=== PATIENT | male | born 1935 | race Caucasian/White ===

== ENCOUNTER 2018-10-08 10:57 | Inpatient (IN) ==
[2018-10-08] MEDS ORDERED: VANCOMYCIN 1,000 MG VIAL ONE (11:04)
[2018-10-08] MEDS ORDERED: PAPAVERINE 60 MG/2 ML VIAL ONE (11:04)
[2018-10-08] MEDS ORDERED: SUFentanil 250 MCG/5 ML AMP ONE ×2 (11:08)
[2018-10-08] MEDS ORDERED: MIDAZOLAM 10 MG/2 ML VIAL ONE ×2 (11:09→12:57)
[2018-10-08] MEDS ORDERED: GLUCAGON 1 MG VIAL IM PRN (11:30)
[2018-10-08] MEDS ORDERED: CEFUROXIME INJ 1,500 MG in SYRINGE 1 EACH IV ONE (11:30)
[2018-10-08] MEDS ORDERED: DEXTROSE 50% 25 GM/50 ML SYRINGE IV PRN ×3 (11:30→17:00)
[2018-10-08] MEDS ORDERED: CEFUROXIME 1,500 MG VIAL ONE (11:31)
[2018-10-08] MEDS ORDERED: CALCIUM CHLORIDE 1,000 MG/10 ML SYRINGE IV ONE (13:32)
[2018-10-08] MEDS ORDERED: PHENYLEPHRINE DRIP 40 MG/250 ML PREMIX IV ONE (13:32)
[2018-10-08] MEDS ORDERED: SODIUM BICARBONATE 50 MEQ/50 ML VIAL IV ONE ×2 (13:32→16:06)
[2018-10-08] MEDS ORDERED: NITROPRUSSIDE 50 MG/2 ML VIAL ONE (13:32)
[2018-10-08] MEDS ORDERED: ALBUMIN 5% 12.5 GM/250 ML VIAL IV ONE (13:33)
[2018-10-08] MEDS ORDERED: POTASSIUM CHLORIDE RIDER 100 ML IV ONE ×2 (13:33→17:15)
[2018-10-08 13:36] LABS: ABG Base Excess 3.4 MMOL/L (-2.5-2.5); ABG HCO3 26.9 MMOL/L (20-26); ABG Oxygen Saturation 98.8 % (95-100); ABG PCO2 36.9 MM HG (35-48); ABG PH 7.481 (7.35-7.45); ABG PO2 240.6 MM HG (80-95); ABG TCO2 28.1 MMOL/L (23-27); Glucose Heart Surgery 98 MG/DL (74-106); Hemoglobin Heart Surgery 11.4 G/DL (14.0-18.0); Ionized Calcium Arterial 1.04 MMOL/L (1.21-1.46); Potassium Heart/CVR 2.7 MMOL/L (3.5-5.1); Sodium Heart/CVR 134 MMOL/L (135-145)
[2018-10-08 14:09] LABS: Apearance,Urine CLEAR (Clear); Bilirubin,Urine Negative (Negative); Blood, Urine Negative (Negative); Glucose,Urine (UA) Negative (Negative); Ketones,Urine Negative (Negative); Mucus,Urine Moderate /LPF (Occasional); Nitrite,Urine Negative (Negative); Protein,Urine Negative; RBC,Urine 10 /HPF (0-4); Urine Color Yellow (Yellow); Urine Urobilinogen < 2.0 EU/DL (0.2-1.0); WBC,Urine 1 /HPF (0-6)
[2018-10-08] MEDS ORDERED: AMIODARONE INJ 450 MG in DEXTROSE 5% 241 ML IV SCH (14:30)
[2018-10-08 14:53] LABS: Hematocrit Heart Surgery 24.8 PERCENT (42-52); Hemoglobin Heart Surgery 7.9 G/DL (14.0-18.0); PCO2 Patient Temp Venous 35.6 MM HG; PH Patient Temp Venous 7.49; PO2 Patient Temp Venous 42.7 MM HG; Potassium Heart/CVR 3.6 MMOL/L (3.5-5.1); VBG Base Excess 3.8 MEQ/L (0-4); VBG HCO3 27.6 MEQ/L (24-28); VBG Oxygen Saturation 83.9 %; VBG PCO2 37.3 MMHG (41-51); VBG PH 7.475; VBG PO2 45.8 MMHG (17-40)
[2018-10-08] MEDS ORDERED: CHLORHEXIDINE 4% SOLN 118 ML BOTTLE TOP SCH (15:00)
[2018-10-08] MEDS ORDERED: FAMOTIDINE 20 MG/2 ML VIAL IV ONE (15:18)
[2018-10-08] MEDS ORDERED: diphenhydrAMINE 50 MG/1 ML VIAL ONE ×2 (15:18→17:16)
[2018-10-08 15:28] LABS: Glucose Heart Surgery 213 MG/DL (74-106); Hemoglobin Heart Surgery 8.9 G/DL (14.0-18.0); Sodium Heart/CVR 129 MMOL/L (135-145); VBG Base Excess 3.6 MEQ/L (0-4); VBG HCO3 27.1 MEQ/L (24-28); VBG Oxygen Saturation 73.7 %; VBG PCO2 36.6 MMHG (41-51); VBG PH 7.487; VBG PO2 38.7 MMHG (17-40)
[2018-10-08 16:05] LABS: ABG Base Excess 3.3 MMOL/L (-2.5-2.5); ABG HCO3 26.3 MMOL/L (20-26); ABG Oxygen Saturation 98.5 % (95-100); ABG PCO2 33.5 MM HG (35-48); ABG PH 7.512 (7.35-7.45); ABG TCO2 27.3 MMOL/L (23-27); Glucose Heart Surgery 201 MG/DL (74-106); Hemoglobin Heart Surgery 9.7 G/DL (14.0-18.0); Ionized Calcium Arterial 1.09 MMOL/L (1.21-1.46); Potassium Heart/CVR 3.3 MMOL/L (3.5-5.1); Sodium Heart/CVR 133 MMOL/L (135-145)
[2018-10-08] MEDS ORDERED: MAGNESIUM SULFATE 5 GM/10 ML VIAL IV ONE (16:06)
[2018-10-08] MEDS ORDERED: HEPARIN 10,000 UNIT/10 ML VIAL ONE (16:06)
[2018-10-08] MEDS ORDERED: ALBUMIN 25% 25 GM/100 ML VIAL IV ONE (16:06)
[2018-10-08] MEDS ORDERED: DEXTROSE 5% KCL 20 MEQ 20 MEQ/1,000 ML BAG IV ONE (16:06)
[2018-10-08] MEDS ORDERED: MANNITOL 100 GM/500 ML BAG IV ONE (16:06)
[2018-10-08] MEDS ORDERED: FUROSEMIDE 20 MG/2 ML VIAL ONE (16:06)
[2018-10-08] MEDS ORDERED: PROTAMINE SULFATE 250 MG/25 ML VIAL IV ONE (16:06)
[2018-10-08] MEDS ORDERED: methylPREDNISolone SOD SUC 1,000 MG/8 ML VIAL ONE (16:06)
[2018-10-08] MEDS ORDERED: POTASSIUM CHLORIDE 20 MEQ/10 ML VIAL ONE (16:07)
[2018-10-08] MEDS ORDERED: PROTAMINE SULFATE 50 MG/5 ML VIAL IV ONE ×2 (16:07→17:17)
[2018-10-08] MEDS ORDERED: VECURONIUM 10 MG VIAL IV PRN ×2 (17:00)
[2018-10-08] MEDS ORDERED: ACETAMINOPHEN 650 MG SUPP RECTAL PRN (17:00)
[2018-10-08] MEDS ORDERED: MAGNESIUM SULF RIDER 4 GM in PREMIX 1 EACH IV PRN (17:00)
[2018-10-08] MEDS ORDERED: MIDAZOLAM 10 MG/2 ML VIAL IV PRN (17:00)
[2018-10-08] MEDS ORDERED: INSULIN REGULAR 100 UNIT/ML IV ONE (17:00)
[2018-10-08] MEDS ORDERED: CALCIUM CHLORIDE 1,000 MG/10 ML SYRINGE IV PRN (17:00)
[2018-10-08] MEDS ORDERED: ONDANSETRON 4 MG/2 ML VIAL IV PRN (17:00)
[2018-10-08] MEDS ORDERED: INSULIN REGULAR 100 UNIT/ML IV PRN (17:00)
[2018-10-08] MEDS ORDERED: MAGNESIUM SULF RIDER 2 GM in PREMIX 1 EACH IV PRN (17:00)
[2018-10-08] MEDS ORDERED: PHENYLEPHRINE DRIP 40 MG/250 ML PREMIX IV PRN (17:00)
[2018-10-08 17:05] LABS: ABG Base Excess 4.8 MMOL/L (-2.5-2.5); ABG HCO3 27.7 MMOL/L (20-26); ABG Oxygen Saturation 98.3 % (95-100); ABG PH 7.517 (7.35-7.45); ABG PO2 145.1 MM HG (80-95); ABG TCO2 28.8 MMOL/L (23-27); Glucose Heart Surgery 172 MG/DL (74-106); Hemoglobin Heart Surgery 10.8 G/DL (14.0-18.0); Potassium Heart/CVR 3.3 MMOL/L (3.5-5.1)
[2018-10-08 17:08] LABS: Basophils % 0.3 % (0.0-0.8); Eosinophils # 0.1 10*3/uL (0.0-0.87); Eosinophils % 0.7 % (0.00-10.9); Hematocrit 26.2 VOL% (42.0-52.0); Hemoglobin 8.6 GM/DL (14.0-18.0); Immature Granulocytes % 0.8 %; Immature Granulocytes Absolute 0.06 #; Lymphocytes # 0.5 10*3/uL (1.4-4.0); Lymphocytes % 6.9 % (21.2-54.2); Mean Corpuscular HGB Conc 32.8 GM/DL (32-36); Mean Corpuscular Volume 98.9 FL (87-102); Mean Platelet Volume 9.2 FL (9.6-12.0); Monocytes % 8.1 % (1.7-12.7); Neutrophils % 83.2 % (38.7-73.9); Red Blood Count 2.65 MC/CUMM (3.8-5.5); Red Cell Distribution Width 13.1 % (9.3-17.3); White Blood Count 7.6 T/CUMM (4-12)
[2018-10-08 17:12] LABS: Platelet Count 141 T/CUMM (130-400)
[2018-10-08] MEDS ORDERED: CALCIUM CHLORIDE 1,000 MG/10 ML VIAL IV ONE (17:14)
[2018-10-08] MEDS ORDERED: PHENYLEPHRINE DRIP 20 MG/250 ML PREMIX IV ONE (17:14)
[2018-10-08] MEDS ORDERED: SEVOFLURANE 1 UNIT/15 MINUTE INH ONE (17:15)
[2018-10-08] MEDS ORDERED: ePHEDrine 50 MG/ML AMP ONE (17:16)
[2018-10-08] MEDS ORDERED: AMIODARONE 150 MG/3 ML VIAL ONE (17:16)
[2018-10-08] MEDS ORDERED: AMINOCAPROIC ACID 5,000 MG/20 ML VIAL ONE (17:17)
[2018-10-08] MEDS ORDERED: NITROGLYCERIN DRIP 50 MG/250 ML BOTTLE IV ONE (17:17)
[2018-10-08] MEDS ORDERED: VECURONIUM 10 MG VIAL IV ONE (17:17)
[2018-10-08] MEDS ORDERED: SODIUM CHLORIDE 0.9% 1,000 ML IV ONE (17:18)
[2018-10-08] MEDS ORDERED: LACTATED RINGERS 1,000 ML IV ONE (17:18)
[2018-10-08] MEDS ORDERED: SODIUM CHLORIDE 0.9% 250 ML IV ONE (17:18)
[2018-10-08] MEDS ORDERED: ETOMIDATE 40 MG/20 ML VIAL IV ONE (17:25)
[2018-10-08 17:27] LABS: Albumin 3.2 G/DL (3.4-5.0); Bilirubin,Total 1.3 MG/DL (0.2-1.0); Calcium 9.3 MG/DL (8.5-10.1); INR 1.1; Osmolality,Calculated 279.7 MOS/KG (273-304); PT Patient Result 11.5 SECS; Partial Thromboplastin Time 26.9 SECS (0-40); Total Protein 5.5 G/DL (6.4-8.3)
[2018-10-08 17:28] LABS: CKMB % 3.5 %
[2018-10-08 17:29] LABS: Troponin I 21.8 NG/ML (0.00-0.045)
[2018-10-08] MEDS: SODIUM CHLORIDE 0.45% 1,000 ML IV SCH ×2 (17:54)
[2018-10-08] MEDS: NITROPRUSSIDE 100 MG in DEXTROSE 5% 250 ML IV PRN (17:54)
[2018-10-08] MEDS: POTASSIUM CHLORIDE RIDER 20 MEQ in PREMIX 1 EACH IV PRN ×4 (17:56→20:49)
[2018-10-08] MEDS: INSULIN REGULAR DRIP 100 ML IV SCH (18:39)
[2018-10-08] MEDS: LACTATED RINGERS 250 ML IV PRN ×5 (18:45→21:20)
[2018-10-08 20:05] LABS: ABG Base Excess 2.8 MMOL/L (-2.5-2.5); ABG HCO3 26.5 MMOL/L (20-26); ABG Oxygen Saturation 95.2 % (95-100); ABG PCO2 37.6 MM HG (35-48); ABG PH 7.466 (7.35-7.45); ABG PO2 80.1 MM HG (80-95); ABG TCO2 27.7 MMOL/L (23-27); Glucose Heart Surgery 165 MG/DL (74-106); Hemoglobin Heart Surgery 11.1 G/DL (14.0-18.0); Potassium Heart/CVR 3.2 MMOL/L (3.5-5.1)
[2018-10-08] MEDS: AMIODARONE INJ 450 MG in DEXTROSE 5% 241 ML IV SCH (20:19)
[2018-10-08] MEDS: CHLORHEXIDINE 0.12% ORAL RINSE 60 ML BOTTLE SWISH/SPIT SCH (20:28)
[2018-10-08] MEDS ORDERED: CHLORHEXIDINE 0.12% ORAL RINSE 60 ML BOTTLE SWISH/SPIT SCH (21:00)
[2018-10-08] MEDS: MIDAZOLAM 2 MG/2 ML VIAL IV PRN (23:39)
[2018-10-09] MEDS ORDERED: FUROSEMIDE 40 MG/4 ML VIAL IV ONE ×3 (00:07→18:11)
[2018-10-09] MEDS: ALBUMIN 5% 12.5 GM in PREMIX 1 EACH IV PRN ×5 (00:49→20:20)
[2018-10-09] MEDS: LACTATED RINGERS 250 ML IV PRN ×3 (01:17→01:59)
[2018-10-09] MEDS: AMIODARONE INJ 450 MG in DEXTROSE 5% 241 ML IV SCH ×2 (01:24→16:30)
[2018-10-09] MEDS: CEFUROXIME INJ 1,500 MG in SYRINGE 1 EACH IV SCH ×2 (02:11→15:15)
[2018-10-09 03:00] LABS: ABG Base Excess 3.5 MMOL/L (-2.5-2.5); ABG HCO3 27.6 MMOL/L (20-26); ABG PCO2 36.4 MM HG (35-48); ABG PH 7.479 (7.35-7.45); ABG PO2 96.8 MM HG (80-95); ABG TCO2 24.6 MMOL/L (23-27); Glucose Heart Surgery 122 MG/DL (74-106); Hematocrit Heart Surgery 30.4 PERCENT (42-52); Hemoglobin Heart Surgery 9.8 G/DL (14.0-18.0); Potassium Heart/CVR 3.2 MMOL/L (3.5-5.1)
[2018-10-09] MEDS: POTASSIUM CHLORIDE RIDER 20 MEQ in PREMIX 1 EACH IV PRN ×5 (03:07→12:30)
[2018-10-09 03:08] LABS: Basophils % 0.1 % (0.0-0.8); Hematocrit 30.5 VOL% (42.0-52.0); Hemoglobin 9.9 GM/DL (14.0-18.0); Immature Granulocytes % 0.6 %; Immature Granulocytes Absolute 0.04 #; Lymphocytes # 0.3 10*3/uL (1.4-4.0); Mean Corpuscular HGB Conc 32.5 GM/DL (32-36); Mean Corpuscular Volume 99.3 FL (87-102); Mean Platelet Volume 9.7 FL (9.6-12.0); Monocytes % 7.2 % (1.7-12.7); Neutrophils % 87.1 % (38.7-73.9); Platelet Count 124 T/CUMM (130-400); Red Blood Count 3.07 MC/CUMM (3.8-5.5); Red Cell Distribution Width 13.2 % (9.3-17.3); White Blood Count 6.8 T/CUMM (4-12)
[2018-10-09 03:23] LABS: Albumin 3.2 G/DL (3.4-5.0); Bilirubin,Direct 0.38 MG/DL (0.0-0.20); Calcium 8.4 MG/DL (8.5-10.1); Osmolality,Calculated 279.4 MOS/KG (273-304); Total Protein 5.7 G/DL (6.4-8.3)
[2018-10-09 03:24] LABS: CKMB % 3.6 %; Troponin I 13.9 NG/ML (0.00-0.045)
[2018-10-09] MEDS: MIDAZOLAM 2 MG/2 ML VIAL IV PRN ×3 (03:32→07:00)
[2018-10-09 06:20] LABS: VBG Base Excess 0.7 MEQ/L (0-4); VBG HCO3 23.4 MEQ/L (24-28); VBG Oxygen Saturation 98.6 %; VBG PCO2 30.8 MMHG (41-51); VBG PH 7.498; VBG PO2 180.2 MMHG (17-40)
[2018-10-09 06:46] LABS: VBG Base Excess 1.6 MEQ/L (0-4); VBG HCO3 25.7 MEQ/L (24-28); VBG Oxygen Saturation 85.6 %; VBG PCO2 41.3 MMHG (41-51); VBG PH 7.412; VBG PO2 50.6 MMHG (17-40)
[2018-10-09] MEDS ORDERED: PROPOFOL 1,000 MG/100 ML BOTTLE IV ONE (07:22)
[2018-10-09] MEDS: PROPOFOL 1,000 MG/100 ML BOTTLE IV SCH ×4 (07:25→22:57)
[2018-10-09] MEDS: CHLORHEXIDINE 0.12% ORAL RINSE 60 ML BOTTLE SWISH/SPIT SCH ×2 (09:05→20:03)
[2018-10-09 09:52] LABS: VBG HCO3 24.3 MEQ/L (24-28); VBG PCO2 39.5 MMHG (41-51); VBG PH 7.417; VBG PO2 22.2 MMHG (17-40)
[2018-10-09] MEDS ORDERED: HEPARIN/NACL 0.9% 2 UNITS/ML 500 ML IV ONE (10:29)
[2018-10-09 10:34] LABS: VBG Base Excess 0.6 MEQ/L (0-4); VBG HCO3 24.8 MEQ/L (24-28); VBG Oxygen Saturation 32.7 %; VBG PCO2 38.1 MMHG (41-51); VBG PH 7.432; VBG PO2 24.1 MMHG (17-40)
[2018-10-09] MEDS ORDERED: DOBUTamine 500 MG/250 ML PREMIX IV ONE (10:34)
[2018-10-09] MEDS: DOBUTamine 500 MG/250 ML PREMIX IV SCH (10:40)
[2018-10-09] MEDS ORDERED: NITROGLYCERIN DRIP 50 MG/250 ML BOTTLE IV ONE (10:45)
[2018-10-09] MEDS: NITROGLYCERIN DRIP 50 MG/250 ML BOTTLE IV PRN (10:50)
[2018-10-09 11:44] LABS: ABG Base Excess 0.4 MMOL/L (-2.5-2.5); ABG HCO3 24.1 MMOL/L (20-26); ABG Oxygen Saturation 95.2 % (95-100); ABG PCO2 35.2 MM HG (35-48); ABG PH 7.453 (7.35-7.45); ABG PO2 81.6 MM HG (80-95); ABG TCO2 25.2 MMOL/L (23-27); Glucose Heart Surgery 123 MG/DL (74-106); Hemoglobin Heart Surgery 10.3 G/DL (14.0-18.0); Potassium Heart/CVR 3.7 MMOL/L (3.5-5.1)
[2018-10-09] MEDS: MORPHINE 4 MG/1 ML VIAL IV PRN ×2 (12:20→16:26)
[2018-10-09] MEDS: INSULIN REGULAR DRIP 100 ML IV SCH (16:30)
[2018-10-09] MEDS: SODIUM CHLORIDE 0.45% 1,000 ML IV SCH ×2 (19:00)
[2018-10-09 19:35] LABS: CKMB % 4.3 %
[2018-10-09 19:37] LABS: Troponin I 9.67 NG/ML (0.00-0.045)
[2018-10-09] MEDS: MORPHINE 10 MG/1 ML VIAL IV PRN (21:05)
[2018-10-10] MEDS: CEFUROXIME INJ 1,500 MG in SYRINGE 1 EACH IV SCH (03:05)
[2018-10-10] MEDS: FUROSEMIDE 40 MG/4 ML VIAL IV PRN (03:05)
[2018-10-10] MEDS: AMIODARONE INJ 450 MG in DEXTROSE 5% 241 ML IV SCH ×3 (03:25→21:06)
[2018-10-10 03:34] LABS: ABG Base Excess 3.3 MMOL/L (-2.5-2.5); ABG HCO3 26.3 MMOL/L (20-26); ABG Oxygen Saturation 97.7 % (95-100); ABG PCO2 33.6 MM HG (35-48); ABG PH 7.512 (7.35-7.45); ABG PO2 115.6 MM HG (80-95); ABG TCO2 27.4 MMOL/L (23-27); Glucose Heart Surgery 120 MG/DL (74-106); Hemoglobin Heart Surgery 8.7 G/DL (14.0-18.0); Potassium Heart/CVR 3.4 MMOL/L (3.5-5.1)
[2018-10-10 03:40] LABS: Basophils % 0.1 % (0.0-0.8); Hematocrit 24.3 VOL% (42.0-52.0); Hemoglobin 7.8 GM/DL (14.0-18.0); Immature Granulocytes % 0.9 %; Lymphocytes # 0.6 10*3/uL (1.4-4.0); Lymphocytes % 4.9 % (21.2-54.2); Mean Corpuscular HGB Conc 32.1 GM/DL (32-36); Mean Platelet Volume 9.8 FL (9.6-12.0); Monocytes % 7.6 % (1.7-12.7); Neutrophils % 86.5 % (38.7-73.9); Platelet Count 122 T/CUMM (130-400); Red Blood Count 2.43 MC/CUMM (3.8-5.5); Red Cell Distribution Width 13.2 % (9.3-17.3); White Blood Count 11.2 T/CUMM (4-12)
[2018-10-10] MEDS: PROPOFOL 1,000 MG/100 ML BOTTLE IV SCH ×2 (04:07→10:32)
[2018-10-10 04:14] LABS: Albumin 3.1 G/DL (3.4-5.0); Bilirubin,Direct 0.28 MG/DL (0.0-0.20); Bilirubin,Total 0.6 MG/DL (0.2-1.0); Calcium 7.5 MG/DL (8.5-10.1); Osmolality,Calculated 282.3 MOS/KG (273-304); Total Protein 5.3 G/DL (6.4-8.3)
[2018-10-10 04:16] LABS: Lymphocytes 6 % (20-55); Platelet Estimate Decreased; Segmented Neutrophils 93 % (50-85); Total Cells Counted 100
[2018-10-10 04:17] LABS: Polychromasia Few
[2018-10-10] MEDS: POTASSIUM CHLORIDE RIDER 20 MEQ in PREMIX 1 EACH IV PRN ×4 (04:19→14:22)
[2018-10-10 05:37] LABS: ABG Base Excess 2.4 MMOL/L (-2.5-2.5); ABG HCO3 26.6 MMOL/L (20-26); ABG PCO2 40.1 MM HG (35-48); ABG PH 7.433 (7.35-7.45); ABG TCO2 24.5 MMOL/L (23-27); Glucose Heart Surgery 125 MG/DL (74-106); Hematocrit Heart Surgery 29.6 PERCENT (42-52); Hemoglobin Heart Surgery 9.6 G/DL (14.0-18.0); Potassium Heart/CVR 4.5 MMOL/L (3.5-5.1)
[2018-10-10] MEDS: DEXMEDETOMIDINE 200 MCG in SODIUM CHLORIDE 0.9% 48 ML IV PRN ×2 (06:25→10:58)
[2018-10-10] MEDS ORDERED: FUROSEMIDE 40 MG/4 ML VIAL IV ONE (06:30)
[2018-10-10] MEDS: NITROGLYCERIN DRIP 50 MG/250 ML BOTTLE IV PRN (08:15)
[2018-10-10] MEDS: CHLORHEXIDINE 0.12% ORAL RINSE 60 ML BOTTLE SWISH/SPIT SCH ×2 (09:17→21:06)
[2018-10-10] MEDS: MORPHINE 4 MG/1 ML VIAL IV PRN ×3 (09:53→21:40)
[2018-10-10 09:55] LABS: ABG Base Excess 4.2 MMOL/L (-2.5-2.5); ABG HCO3 28.1 MMOL/L (20-26); ABG Oxygen Saturation 97.4 % (95-100); ABG PCO2 32.5 MM HG (35-48); ABG PH 7.522 (7.35-7.45); ABG PO2 86.6 MM HG (80-95); ABG TCO2 23.9 MMOL/L (23-27); Glucose Heart Surgery 126 MG/DL (74-106); Hemoglobin Heart Surgery 10.7 G/DL (14.0-18.0); Potassium Heart/CVR 3.8 MMOL/L (3.5-5.1)
[2018-10-10] MEDS: POTASSIUM CHLORIDE RIDER 10 MEQ in PREMIX 1 EACH IV PRN (10:40)
[2018-10-10 11:37] LABS: VBG Base Excess 5.3 MEQ/L (0-4); VBG HCO3 28.4 MEQ/L (24-28); VBG Oxygen Saturation 51.1 %; VBG PCO2 40.1 MMHG (41-51); VBG PH 7.473
[2018-10-10 12:19] LABS: ABG Base Excess 4.3 MMOL/L (-2.5-2.5); ABG HCO3 28.3 MMOL/L (20-26); ABG Oxygen Saturation 98.8 % (95-100); ABG PCO2 32.5 MM HG (35-48); ABG PH 7.524 (7.35-7.45); Glucose Heart Surgery 114 MG/DL (74-106); Hematocrit Heart Surgery 33.5 PERCENT (42-52); Hemoglobin Heart Surgery 10.8 G/DL (14.0-18.0); Potassium Heart/CVR 4.2 MMOL/L (3.5-5.1)
[2018-10-10] MEDS: POLYVINYL ALCOHOL 1.4% OPH SOLN 15 ML BOTTLE BOTH EYES PRN ×2 (12:50→23:00)
[2018-10-10 13:50] LABS: ABG Base Excess 3.2 MMOL/L (-2.5-2.5); ABG HCO3 27.3 MMOL/L (20-26); ABG Oxygen Saturation 98.2 % (95-100); ABG PCO2 37.2 MM HG (35-48); ABG PH 7.467 (7.35-7.45); ABG TCO2 24.1 MMOL/L (23-27); Glucose Heart Surgery 109 MG/DL (74-106); Hematocrit Heart Surgery 32.8 PERCENT (42-52); Hemoglobin Heart Surgery 10.6 G/DL (14.0-18.0); Potassium Heart/CVR 4.3 MMOL/L (3.5-5.1)
[2018-10-10] MEDS: INSULIN REGULAR 100 UNIT/ML SUBCUT SCH ×2 (16:00→21:06)
[2018-10-10] MEDS: SODIUM CHLORIDE 0.45% 1,000 ML IV SCH ×2 (17:00)
[2018-10-10] MEDS ORDERED: methylPREDNISolone SOD SUC 125 MG/2 ML VIAL IV ONE (19:21)
[2018-10-10] MEDS: DOBUTamine 500 MG/250 ML PREMIX IV SCH (21:06)
[2018-10-11] MEDS: INSULIN REGULAR 100 UNIT/ML SUBCUT SCH ×6 (00:01→20:23)
[2018-10-11] MEDS: AMIODARONE INJ 450 MG in DEXTROSE 5% 241 ML IV SCH ×2 (00:58→11:07)
[2018-10-11 01:46] LABS: ABG Base Excess -3.3 MMOL/L (-2.5-2.5); ABG HCO3 21.6 MMOL/L (20-26); ABG Oxygen Saturation 94.9 % (95-100); ABG PCO2 49.7 MM HG (35-48); ABG PH 7.288 (7.35-7.45); ABG PO2 88.7 MM HG (80-95); ABG TCO2 21.4 MMOL/L (23-27); Glucose Heart Surgery 176 MG/DL (74-106); Potassium Heart/CVR 4.4 MMOL/L (3.5-5.1)
[2018-10-11] MEDS ORDERED: CLORAZEPATE 7.5 MG TABLET PO ONE (01:52)
[2018-10-11] MEDS ORDERED: ALBUTEROL 2.5 MG/3 ML NEB RESP TX PRN (01:52)
[2018-10-11] MEDS: MORPHINE 10 MG/1 ML VIAL IV PRN ×2 (02:10→21:36)
[2018-10-11] MEDS: FUROSEMIDE 40 MG/4 ML VIAL IV PRN (02:11)
[2018-10-11] MEDS: ACETAMINOPHEN 325 MG TABLET PO PRN ×2 (02:37→21:36)
[2018-10-11 03:48] LABS: ABG Base Excess 2.2 MMOL/L (-2.5-2.5); ABG HCO3 26.3 MMOL/L (20-26); ABG Oxygen Saturation 97.4 % (95-100); ABG PCO2 37.2 MM HG (35-48); ABG PH 7.453 (7.35-7.45); ABG TCO2 23.3 MMOL/L (23-27)
[2018-10-11 04:05] LABS: Basophils % 0.2 % (0.0-0.8); Hematocrit 32.6 VOL% (42.0-52.0); Hemoglobin 10.4 GM/DL (14.0-18.0); Immature Granulocytes % 0.8 %; Immature Granulocytes Absolute 0.08 #; Lymphocytes # 0.6 10*3/uL (1.4-4.0); Lymphocytes % 6.1 % (21.2-54.2); Mean Corpuscular HGB Conc 31.9 GM/DL (32-36); Mean Corpuscular Volume 97.3 FL (87-102); Monocytes % 12.2 % (1.7-12.7); NRBC # 0.02 10*3/uL; Neutrophils % 80.7 % (38.7-73.9); Platelet Count 137 T/CUMM (130-400); Red Blood Count 3.35 MC/CUMM (3.8-5.5); Red Cell Distribution Width 15.1 % (9.3-17.3); White Blood Count 9.8 T/CUMM (4-12)
[2018-10-11 04:39] LABS: Albumin 3.2 G/DL (3.4-5.0); Bilirubin,Direct 0.36 MG/DL (0.0-0.20); Bilirubin,Total 0.9 MG/DL (0.2-1.0); Calcium 7.9 MG/DL (8.5-10.1); Osmolality,Calculated 279.7 MOS/KG (273-304); Total Protein 5.8 G/DL (6.4-8.3)
[2018-10-11] MEDS: POTASSIUM CHLORIDE RIDER 20 MEQ in PREMIX 1 EACH IV PRN ×3 (06:00→19:00)
[2018-10-11] MEDS: POTASSIUM CHLORIDE RIDER 10 MEQ in PREMIX 1 EACH IV PRN (07:14)
[2018-10-11] MEDS ORDERED: FUROSEMIDE 40 MG/4 ML VIAL IV ONE ×2 (08:44→15:58)
[2018-10-11] MEDS ORDERED: FUROSEMIDE 100 MG/10 ML VIAL ONE (08:47)
[2018-10-11] MEDS: ALBUTEROL/IPRATROPIUM 3 ML NEB RESP TX SCH ×5 (09:08→22:55)
[2018-10-11] MEDS: CITALOPRAM 20 MG TABLET PO SCH (10:19)
[2018-10-11] MEDS: APIXABAN 5 MG TABLET PO SCH ×2 (10:19→20:19)
[2018-10-11] MEDS: PANTOPRAZOLE 40 MG TABLET PO SCH (10:19)
[2018-10-11] MEDS: ASPIRIN EC 81 MG TABLET PO SCH (10:19)
[2018-10-11] MEDS: CHLORHEXIDINE 0.12% ORAL RINSE 60 ML BOTTLE SWISH/SPIT SCH ×2 (10:20→20:23)
[2018-10-11] MEDS: CLORAZEPATE 3.75 MG TABLET PO SCH ×3 (11:08→20:19)
[2018-10-11] MEDS ORDERED: GABAPENTIN 100 MG CAPSULE PO ONE (11:09)
[2018-10-11] MEDS: DOBUTamine 500 MG/250 ML PREMIX IV SCH (12:22)
[2018-10-11] MEDS ORDERED: GABAPENTIN 100 MG CAPSULE PO SCH (15:00)
[2018-10-11] MEDS ORDERED: DOBUTamine 500 MG/250 ML PREMIX IV SCH (16:30)
[2018-10-11 16:46] LABS: ABG HCO3 27.1 MMOL/L (20-26); ABG Oxygen Saturation 97.5 % (95-100); ABG PH 7.483 (7.35-7.45); ABG PO2 90.3 MM HG (80-95); Glucose Heart Surgery 155 MG/DL (74-106); Hemoglobin Heart Surgery 12.3 G/DL (14.0-18.0); Potassium Heart/CVR 3.4 MMOL/L (3.5-5.1)
[2018-10-11] MEDS: GABAPENTIN 100 MG CAPSULE PO SCH ×2 (16:49→20:19)
[2018-10-11] MEDS: METOPROLOL SUCCINATE XL 25 MG TABLET PO SCH (16:51)
[2018-10-11] MEDS: MORPHINE 4 MG/1 ML VIAL IV PRN (19:10)
[2018-10-11] MEDS: SODIUM CHLORIDE 0.45% 1,000 ML IV SCH (20:23)
[2018-10-11] MEDS: NITROPRUSSIDE 100 MG in DEXTROSE 5% 250 ML IV PRN (20:48)
[2018-10-11] MEDS: METOCLOPRAMIDE 10 MG/2 ML VIAL IV PRN (22:47)
[2018-10-12] MEDS: INSULIN REGULAR 100 UNIT/ML SUBCUT SCH ×5 (00:07→23:30)
[2018-10-12] MEDS: NITROGLYCERIN DRIP 50 MG/250 ML BOTTLE IV PRN (01:40)
[2018-10-12] MEDS: ALBUTEROL/IPRATROPIUM 3 ML NEB RESP TX SCH ×6 (03:30→23:05)
[2018-10-12 05:07] LABS: ABG Base Excess 1.4 MMOL/L (-2.5-2.5); ABG HCO3 25.6 MMOL/L (20-26); ABG Oxygen Saturation 94.9 % (95-100); ABG PCO2 40.6 MM HG (35-48); ABG PH 7.415 (7.35-7.45); ABG PO2 74.8 MM HG (80-95)
[2018-10-12 05:55] LABS: Basophils % 0.2 % (0.0-0.8); Hemoglobin 11.5 GM/DL (14.0-18.0); Immature Granulocytes % 0.9 %; Immature Granulocytes Absolute 0.11 #; Lymphocytes # 0.7 10*3/uL (1.4-4.0); Lymphocytes % 5.4 % (21.2-54.2); Mean Corpuscular HGB Conc 32.9 GM/DL (32-36); Mean Corpuscular Volume 96.7 FL (87-102); Mean Platelet Volume 9.9 FL (9.6-12.0); Monocytes % 10.1 % (1.7-12.7); Neutrophils % 83.4 % (38.7-73.9); Platelet Count 164 T/CUMM (130-400); Red Blood Count 3.62 MC/CUMM (3.8-5.5); Red Cell Distribution Width 14.4 % (9.3-17.3); White Blood Count 12.5 T/CUMM (4-12)
[2018-10-12 06:20] LABS: Albumin 3.4 G/DL (3.4-5.0); Bilirubin,Total 1.6 MG/DL (0.2-1.0); Calcium 8.3 MG/DL (8.5-10.1); Total Protein 6.3 G/DL (6.4-8.3)
[2018-10-12 06:23] LABS: Troponin I 5.69 NG/ML (0.00-0.045)
[2018-10-12] MEDS: METOCLOPRAMIDE 10 MG/2 ML VIAL IV PRN (06:27)
[2018-10-12] MEDS ORDERED: LISINOPRIL/HCTZ 20-25 MG TABLET PO SCH (09:00)
[2018-10-12] MEDS: CLORAZEPATE 3.75 MG TABLET PO SCH ×2 (10:00→19:57)
[2018-10-12] MEDS: PANTOPRAZOLE 40 MG TABLET PO SCH (10:00)
[2018-10-12] MEDS: CITALOPRAM 20 MG TABLET PO SCH (10:00)
[2018-10-12] MEDS: GABAPENTIN 100 MG CAPSULE PO SCH ×3 (10:00→20:15)
[2018-10-12] MEDS: APIXABAN 5 MG TABLET PO SCH ×2 (10:00→20:15)
[2018-10-12] MEDS: CHLORHEXIDINE 0.12% ORAL RINSE 60 ML BOTTLE SWISH/SPIT SCH ×2 (10:00→20:15)
[2018-10-12] MEDS: ASPIRIN EC 81 MG TABLET PO SCH (10:00)
[2018-10-12] MEDS: ALUMINUM/MAGNES/SIMETH MAX STR 30 ML UDCUP PO SCH ×4 (10:00→20:14)
[2018-10-12] MEDS: CEFEPIME 1,000 MG in SYRINGE 1 EACH IV SCH ×2 (10:00→20:14)
[2018-10-12] MEDS: METOPROLOL SUCCINATE XL 25 MG TABLET PO SCH (10:00)
[2018-10-12] MEDS ORDERED: PROPOFOL 1,000 MG/100 ML BOTTLE IV ONE (11:28)
[2018-10-12] MEDS ORDERED: VECURONIUM 10 MG VIAL IV ONE ×2 (11:28→11:58)
[2018-10-12] MEDS: MIDAZOLAM 2 MG/2 ML VIAL IV PRN ×2 (12:00→19:24)
[2018-10-12] MEDS: PROPOFOL 1,000 MG/100 ML BOTTLE IV SCH ×3 (12:30→22:45)
[2018-10-12 13:10] LABS: ABG Base Excess 3.1 MMOL/L (-2.5-2.5); ABG HCO3 27.2 MMOL/L (20-26); ABG Oxygen Saturation 96.7 % (95-100); ABG PCO2 39.1 MM HG (35-48); ABG PO2 83.4 MM HG (80-95); ABG TCO2 24.4 MMOL/L (23-27)
[2018-10-12] MEDS ORDERED: MIDAZOLAM 10 MG/2 ML VIAL ONE (14:44)
[2018-10-12] MEDS ORDERED: FUROSEMIDE 40 MG/4 ML VIAL IV ONE (15:40)
[2018-10-12] MEDS ORDERED: ALBUMIN 5% 25 GM in PREMIX 1 EACH IV ONE (15:53)
[2018-10-12] MEDS: SODIUM CHLORIDE 0.45% 1,000 ML IV SCH (18:12)
[2018-10-12] MEDS: ACETAMINOPHEN 325 MG TABLET PO PRN (23:46)
[2018-10-13] MEDS ORDERED: FUROSEMIDE 40 MG/4 ML VIAL IV ONE (00:01)
[2018-10-13] MEDS: ALUMINUM/MAGNES/SIMETH MAX STR 30 ML UDCUP PO SCH ×2 (01:00→05:10)
[2018-10-13] MEDS ORDERED: HEPARIN/NACL 0.9% 2 UNITS/ML 500 ML IV ONE (02:11)
[2018-10-13 02:28] LABS: Basophils % 0.1 % (0.0-0.8); Eosinophils % 0.4 % (0.00-10.9); Hemoglobin 10.7 GM/DL (14.0-18.0); Immature Granulocytes % 0.6 %; Immature Granulocytes Absolute 0.05 #; Lymphocytes # 0.6 10*3/uL (1.4-4.0); Lymphocytes % 7.4 % (21.2-54.2); Mean Corpuscular HGB Conc 32.4 GM/DL (32-36); Mean Corpuscular Volume 95.9 FL (87-102); Mean Platelet Volume 9.4 FL (9.6-12.0); Monocytes % 12.4 % (1.7-12.7); Neutrophils % 79.1 % (38.7-73.9); Platelet Count 163 T/CUMM (130-400); Red Blood Count 3.44 MC/CUMM (3.8-5.5); Red Cell Distribution Width 14.4 % (9.3-17.3); White Blood Count 8.2 T/CUMM (4-12)
[2018-10-13 02:34] LABS: ABG Base Excess 5.4 MMOL/L (-2.5-2.5); ABG HCO3 29.3 MMOL/L (20-26); ABG Oxygen Saturation 98.2 % (95-100); ABG PCO2 34.1 MM HG (35-48); ABG PH 7.524 (7.35-7.45); ABG PO2 98.2 MM HG (80-95); ABG TCO2 24.9 MMOL/L (23-27)
[2018-10-13 02:55] LABS: Albumin 3.3 G/DL (3.4-5.0); Bilirubin,Total 1.1 MG/DL (0.2-1.0); Calcium 8.3 MG/DL (8.5-10.1); Osmolality,Calculated 281.8 MOS/KG (273-304)
[2018-10-13] MEDS: ALBUTEROL/IPRATROPIUM 3 ML NEB RESP TX SCH ×6 (02:55→23:26)
[2018-10-13 03:05] LABS: Troponin I 4.53 NG/ML (0.00-0.045)
[2018-10-13] MEDS: MORPHINE 4 MG/1 ML VIAL IV PRN ×2 (03:40→19:30)
[2018-10-13] MEDS: INSULIN REGULAR 100 UNIT/ML SUBCUT SCH ×5 (04:05→23:49)
[2018-10-13] MEDS: PROPOFOL 1,000 MG/100 ML BOTTLE IV SCH ×5 (04:23→23:35)
[2018-10-13] MEDS: POTASSIUM CHLORIDE RIDER 20 MEQ in PREMIX 1 EACH IV PRN ×2 (05:05→06:04)
[2018-10-13] MEDS: CHLORHEXIDINE 0.12% ORAL RINSE 60 ML BOTTLE SWISH/SPIT SCH ×2 (08:45→20:27)
[2018-10-13] MEDS: CEFEPIME 1,000 MG in SYRINGE 1 EACH IV SCH ×2 (10:30→20:22)
[2018-10-13] MEDS: METOCLOPRAMIDE 10 MG/2 ML VIAL IV SCH ×3 (12:30→23:40)
[2018-10-13] MEDS: ASPIRIN EC 81 MG TABLET PO SCH (13:24)
[2018-10-13] MEDS: APIXABAN 5 MG TABLET PO SCH ×2 (13:24→20:26)
[2018-10-13] MEDS: CITALOPRAM 20 MG TABLET PO SCH (13:24)
[2018-10-13] MEDS: GABAPENTIN 100 MG CAPSULE PO SCH ×3 (13:24→20:27)
[2018-10-13] MEDS: PANTOPRAZOLE 40 MG TABLET PO SCH (13:25)
[2018-10-13] MEDS: PANTOPRAZOLE 40 MG VIAL IV SCH (16:27)
[2018-10-13] MEDS: SODIUM CHLORIDE 0.45% 1,000 ML IV SCH (23:50)
[2018-10-14] MEDS: ALBUTEROL/IPRATROPIUM 3 ML NEB RESP TX SCH ×6 (03:04→23:45)
[2018-10-14] MEDS: MORPHINE 4 MG/1 ML VIAL IV PRN ×3 (03:48→19:55)
[2018-10-14] MEDS: INSULIN REGULAR 100 UNIT/ML SUBCUT SCH ×5 (03:55→20:15)
[2018-10-14 03:56] LABS: ABG Base Excess 4.7 MMOL/L (-2.5-2.5); ABG HCO3 28.6 MMOL/L (20-26); ABG Oxygen Saturation 98.4 % (95-100); ABG PCO2 41.9 MM HG (35-48); ABG TCO2 25.6 MMOL/L (23-27)
[2018-10-14 04:07] LABS: Basophils % 0.2 % (0.0-0.8); Eosinophils # 0.3 10*3/uL (0.0-0.87); Eosinophils % 3.2 % (0.00-10.9); Hematocrit 35.5 VOL% (42.0-52.0); Hemoglobin 11.7 GM/DL (14.0-18.0); Immature Granulocytes % 1.5 %; Immature Granulocytes Absolute 0.13 #; Lymphocytes % 11.1 % (21.2-54.2); Mean Corpuscular Volume 96.2 FL (87-102); Mean Platelet Volume 9.6 FL (9.6-12.0); Monocytes % 12.6 % (1.7-12.7); Neutrophils % 71.4 % (38.7-73.9); Platelet Count 175 T/CUMM (130-400); Red Blood Count 3.69 MC/CUMM (3.8-5.5); Red Cell Distribution Width 14.2 % (9.3-17.3); White Blood Count 8.7 T/CUMM (4-12)
[2018-10-14 04:12] LABS: Calcium 8.2 MG/DL (8.5-10.1); Osmolality,Calculated 277.8 MOS/KG (273-304)
[2018-10-14] MEDS: PROPOFOL 1,000 MG/100 ML BOTTLE IV SCH ×5 (04:12→20:49)
[2018-10-14] MEDS: POTASSIUM CHLORIDE RIDER 20 MEQ in PREMIX 1 EACH IV PRN ×2 (04:20→05:17)
[2018-10-14] MEDS: METOCLOPRAMIDE 10 MG/2 ML VIAL IV SCH ×3 (05:51→17:17)
[2018-10-14] MEDS: CITALOPRAM 20 MG TABLET PO SCH (09:16)
[2018-10-14] MEDS: GABAPENTIN 100 MG CAPSULE PO SCH ×3 (09:16→20:15)
[2018-10-14] MEDS: APIXABAN 5 MG TABLET PO SCH ×2 (09:17→20:15)
[2018-10-14] MEDS: ASPIRIN EC 81 MG TABLET PO SCH (09:17)
[2018-10-14] MEDS: PANTOPRAZOLE 40 MG VIAL IV SCH (09:18)
[2018-10-14] MEDS: CEFEPIME 1,000 MG in SYRINGE 1 EACH IV SCH ×2 (09:18→20:14)
[2018-10-14] MEDS: CHLORHEXIDINE 0.12% ORAL RINSE 60 ML BOTTLE SWISH/SPIT SCH ×2 (09:32→20:15)
[2018-10-14] MEDS: FUROSEMIDE 40 MG/4 ML VIAL IV SCH (17:17)
[2018-10-14] MEDS: SODIUM CHLORIDE 0.45% 1,000 ML IV SCH (19:37)
[2018-10-15] MEDS: INSULIN REGULAR 100 UNIT/ML SUBCUT SCH ×6 (00:12→20:12)
[2018-10-15] MEDS: PROPOFOL 1,000 MG/100 ML BOTTLE IV SCH ×5 (00:47→21:45)
[2018-10-15] MEDS: SODIUM CHLORIDE 0.45% 1,000 ML IV SCH ×2 (00:50→18:24)
[2018-10-15] MEDS: ALBUTEROL/IPRATROPIUM 3 ML NEB RESP TX SCH ×6 (04:01→23:14)
[2018-10-15 04:08] LABS: ABG Base Excess 3.4 MMOL/L (-2.5-2.5); ABG HCO3 27.1 MMOL/L (20-26); ABG Oxygen Saturation 96.9 % (95-100); ABG PCO2 37.9 MM HG (35-48); ABG PH 7.472 (7.35-7.45); ABG PO2 92.5 MM HG (80-95); ABG TCO2 28.3 MMOL/L (23-27); Basophils % 0.4 % (0.0-0.8); Eosinophils # 0.2 10*3/uL (0.0-0.87); Eosinophils % 2.6 % (0.00-10.9); Hematocrit 36.7 VOL% (42.0-52.0); Hemoglobin 11.5 GM/DL (14.0-18.0); Immature Granulocytes % 2.1 %; Immature Granulocytes Absolute 0.19 #; Lymphocytes # 0.8 10*3/uL (1.4-4.0); Mean Corpuscular HGB Conc 31.3 GM/DL (32-36); Mean Corpuscular Volume 96.8 FL (87-102); Mean Platelet Volume 9.2 FL (9.6-12.0); Monocytes % 10.7 % (1.7-12.7); Neutrophils % 75.2 % (38.7-73.9); Platelet Count 184 T/CUMM (130-400); Red Blood Count 3.79 MC/CUMM (3.8-5.5); Red Cell Distribution Width 14.2 % (9.3-17.3); White Blood Count 9.2 T/CUMM (4-12)
[2018-10-15 04:26] LABS: Albumin 2.9 G/DL (3.4-5.0); Bilirubin,Total 0.7 MG/DL (0.2-1.0); Osmolality,Calculated 276.8 MOS/KG (273-304); Total Protein 5.7 G/DL (6.4-8.3)
[2018-10-15] MEDS: POTASSIUM CHLORIDE RIDER 20 MEQ in PREMIX 1 EACH IV PRN ×2 (04:36→05:36)
[2018-10-15] MEDS: METOCLOPRAMIDE 10 MG/2 ML VIAL IV SCH ×4 (05:29→18:18)
[2018-10-15] MEDS: FUROSEMIDE 40 MG/4 ML VIAL IV SCH ×2 (07:46→15:44)
[2018-10-15] MEDS: GABAPENTIN 100 MG CAPSULE PO SCH ×3 (08:58→20:11)
[2018-10-15] MEDS: CITALOPRAM 20 MG TABLET PO SCH (08:58)
[2018-10-15] MEDS: PANTOPRAZOLE 40 MG VIAL IV SCH (08:58)
[2018-10-15] MEDS: APIXABAN 5 MG TABLET PO SCH ×2 (08:58→20:11)
[2018-10-15] MEDS: CHLORHEXIDINE 0.12% ORAL RINSE 60 ML BOTTLE SWISH/SPIT SCH ×2 (08:59→20:12)
[2018-10-15] MEDS: ASPIRIN EC 81 MG TABLET PO SCH (08:59)
[2018-10-15] MEDS: CEFEPIME 1,000 MG in SYRINGE 1 EACH IV SCH ×2 (08:59→20:11)
[2018-10-15] MEDS: MORPHINE 4 MG/1 ML VIAL IV PRN (14:09)
[2018-10-15] MEDS: ACETAMINOPHEN 325 MG TABLET PO PRN (22:26)
[2018-10-16] MEDS: METOCLOPRAMIDE 10 MG/2 ML VIAL IV SCH ×3 (00:30→12:30)
[2018-10-16] MEDS: INSULIN REGULAR 100 UNIT/ML SUBCUT SCH ×6 (00:53→20:25)
[2018-10-16] MEDS: MORPHINE 4 MG/1 ML VIAL IV PRN ×2 (03:10→20:19)
[2018-10-16 03:48] LABS: ABG Base Excess 4.7 MMOL/L (-2.5-2.5); ABG HCO3 28.6 MMOL/L (20-26); ABG Oxygen Saturation 96.9 % (95-100); ABG PCO2 38.7 MM HG (35-48); ABG PH 7.475 (7.35-7.45); ABG PO2 87.1 MM HG (80-95); ABG TCO2 24.9 MMOL/L (23-27)
[2018-10-16 03:55] LABS: Basophils % 0.4 % (0.0-0.8); Eosinophils # 0.2 10*3/uL (0.0-0.87); Eosinophils % 2.1 % (0.00-10.9); Hematocrit 36.7 VOL% (42.0-52.0); Hemoglobin 11.9 GM/DL (14.0-18.0); Immature Granulocytes % 1.9 %; Lymphocytes # 0.6 10*3/uL (1.4-4.0); Lymphocytes % 5.8 % (21.2-54.2); Mean Corpuscular HGB Conc 32.4 GM/DL (32-36); Mean Corpuscular Volume 96.3 FL (87-102); Mean Platelet Volume 9.4 FL (9.6-12.0); Monocytes % 10.4 % (1.7-12.7); Neutrophils % 79.4 % (38.7-73.9); Platelet Count 203 T/CUMM (130-400); Red Blood Count 3.81 MC/CUMM (3.8-5.5); White Blood Count 10.3 T/CUMM (4-12)
[2018-10-16] MEDS: PROPOFOL 1,000 MG/100 ML BOTTLE IV SCH ×2 (04:00→08:52)
[2018-10-16] MEDS: ALBUTEROL/IPRATROPIUM 3 ML NEB RESP TX SCH ×6 (04:15→23:57)
[2018-10-16 04:18] LABS: Albumin 2.6 G/DL (3.4-5.0); Bilirubin,Total 1.2 MG/DL (0.2-1.0); Calcium 8.4 MG/DL (8.5-10.1); Osmolality,Calculated 276.7 MOS/KG (273-304); Total Protein 5.9 G/DL (6.4-8.3)
[2018-10-16] MEDS: POTASSIUM CHLORIDE RIDER 20 MEQ in PREMIX 1 EACH IV PRN ×6 (04:27→21:13)
[2018-10-16] MEDS ORDERED: ASPIRIN CHEW 81 MG TABLET PO ONE (08:01)
[2018-10-16] MEDS: APIXABAN 5 MG TABLET PO SCH ×2 (08:20→20:19)
[2018-10-16] MEDS: CEFEPIME 1,000 MG in SYRINGE 1 EACH IV SCH ×2 (08:20→20:18)
[2018-10-16] MEDS: GABAPENTIN 100 MG CAPSULE PO SCH ×3 (08:20→20:19)
[2018-10-16] MEDS: CITALOPRAM 20 MG TABLET PO SCH (08:20)
[2018-10-16] MEDS: PANTOPRAZOLE 40 MG VIAL IV SCH (08:20)
[2018-10-16] MEDS: ASPIRIN CHEW 81 MG TABLET PO SCH (08:23)
[2018-10-16] MEDS: FUROSEMIDE 40 MG/4 ML VIAL IV SCH ×2 (08:23→16:03)
[2018-10-16] MEDS: CHLORHEXIDINE 0.12% ORAL RINSE 60 ML BOTTLE SWISH/SPIT SCH ×2 (08:23→20:26)
[2018-10-16] MEDS ORDERED: NITROPRUSSIDE 50 MG/2 ML VIAL ONE (08:53)
[2018-10-16] MEDS: NITROPRUSSIDE 100 MG in DEXTROSE 5% 250 ML IV PRN (09:04)
[2018-10-16 09:40] LABS: ABG Base Excess 3.9 MMOL/L (-2.5-2.5); ABG HCO3 27.8 MMOL/L (20-26); ABG Oxygen Saturation 96.6 % (95-100); ABG PCO2 42.6 MM HG (35-48); ABG PH 7.435 (7.35-7.45); ABG PO2 88.6 MM HG (80-95); ABG TCO2 24.9 MMOL/L (23-27)
[2018-10-16] MEDS: POLYVINYL ALCOHOL 1.4% OPH SOLN 15 ML BOTTLE BOTH EYES PRN (10:22)
[2018-10-16] MEDS: SODIUM CHLORIDE 0.45% 1,000 ML IV SCH (17:50)
[2018-10-16] MEDS ORDERED: METOCLOPRAMIDE 10 MG/2 ML VIAL IV SCH (21:00)
[2018-10-17] MEDS: INSULIN REGULAR 100 UNIT/ML SUBCUT SCH ×4 (00:07→12:03)
[2018-10-17] MEDS: POTASSIUM CHLORIDE RIDER 20 MEQ in PREMIX 1 EACH IV PRN ×4 (00:11→12:34)
[2018-10-17] MEDS: POTASSIUM CHLORIDE RIDER 10 MEQ in PREMIX 1 EACH IV PRN ×2 (00:42→06:44)
[2018-10-17] MEDS: ALBUTEROL/IPRATROPIUM 3 ML NEB RESP TX SCH ×6 (03:11→23:01)
[2018-10-17 04:52] LABS: Basophils % 0.4 % (0.0-0.8); Eosinophils # 0.2 10*3/uL (0.0-0.87); Eosinophils % 1.8 % (0.00-10.9); Hematocrit 36.3 VOL% (42.0-52.0); Hemoglobin 11.7 GM/DL (14.0-18.0); Immature Granulocytes % 1.3 %; Immature Granulocytes Absolute 0.14 #; Lymphocytes # 1.1 10*3/uL (1.4-4.0); Lymphocytes % 10.3 % (21.2-54.2); Mean Corpuscular HGB Conc 32.2 GM/DL (32-36); Mean Corpuscular Volume 96.5 FL (87-102); Mean Platelet Volume 9.7 FL (9.6-12.0); Monocytes % 10.8 % (1.7-12.7); Neutrophils % 75.4 % (38.7-73.9); Platelet Count 168 T/CUMM (130-400); Red Blood Count 3.76 MC/CUMM (3.8-5.5); Red Cell Distribution Width 13.8 % (9.3-17.3); White Blood Count 10.5 T/CUMM (4-12)
[2018-10-17 05:22] LABS: Calcium 8.7 MG/DL (8.5-10.1); Osmolality,Calculated 276.7 MOS/KG (273-304)
[2018-10-17] MEDS: CHLORHEXIDINE 0.12% ORAL RINSE 60 ML BOTTLE SWISH/SPIT SCH ×2 (08:54→22:13)
[2018-10-17] MEDS: FUROSEMIDE 40 MG/4 ML VIAL IV SCH (08:55)
[2018-10-17] MEDS: PANTOPRAZOLE 40 MG VIAL IV SCH (08:56)
[2018-10-17] MEDS: ASPIRIN CHEW 81 MG TABLET PO SCH (08:57)
[2018-10-17] MEDS: CITALOPRAM 20 MG TABLET PO SCH (08:58)
[2018-10-17] MEDS: APIXABAN 5 MG TABLET PO SCH ×2 (08:58→22:09)
[2018-10-17] MEDS: CEFEPIME 1,000 MG in SYRINGE 1 EACH IV SCH (09:02)
[2018-10-17] MEDS: GABAPENTIN 100 MG CAPSULE PO SCH ×3 (09:06→22:08)
[2018-10-17] MEDS ORDERED: MAGNESIUM SULF RIDER 2 GM in PREMIX 1 EACH IV PRN (13:50)
[2018-10-17] MEDS ORDERED: MAGNESIUM HYDROXIDE SUSP 30 ML UDCUP PO PRN (13:50)
[2018-10-17] MEDS ORDERED: oxyCODONE/ACETAMINOPHEN 5-325 MG TABLET PO PRN (13:50)
[2018-10-17] MEDS ORDERED: DEXTROSE 50% 25 GM/50 ML VIAL IV PRN (13:50)
[2018-10-17] MEDS ORDERED: KETOROLAC 30 MG/1 ML VIAL IV PRN (13:50)
[2018-10-17] MEDS ORDERED: MAGNESIUM SULF RIDER 4 GM in PREMIX 1 EACH IV PRN (13:50)
[2018-10-17] MEDS ORDERED: DEXTROSE 50% 25 GM/50 ML SYRINGE IV PRN (13:50)
[2018-10-17] MEDS ORDERED: ALUMINUM/MAGNES/SIMETH MAX STR 30 ML UDCUP PO PRN (13:50)
[2018-10-17] MEDS ORDERED: ONDANSETRON 4 MG/2 ML VIAL IV PRN (13:50)
[2018-10-17] MEDS ORDERED: SODIUM CHLOR 0.45% KCL 20 MEQ 20 MEQ/1,000 ML BAG IV SCH (13:50)
[2018-10-17] MEDS ORDERED: ACETAMINOPHEN 325 MG TABLET PO PRN (13:50)
[2018-10-17] MEDS ORDERED: GLUCAGON 1 MG VIAL IM PRN ×2 (13:50)
[2018-10-17] MEDS ORDERED: GABAPENTIN 100 MG CAPSULE PO SCH (15:00)
[2018-10-17] MEDS: metFORMIN 850 MG TABLET PO SCH (16:59)
[2018-10-17] MEDS ORDERED: APIXABAN 5 MG TABLET PO SCH (21:00)
[2018-10-17] MEDS: DOXAZOSIN 4 MG TABLET PO SCH (22:06)
[2018-10-17] MEDS: FINASTERIDE 5 MG TABLET PO SCH (22:07)
[2018-10-18] MEDS: ALBUTEROL/IPRATROPIUM 3 ML NEB RESP TX SCH ×2 (01:58→07:39)
[2018-10-18 05:37] LABS: Basophils # 0.1 10*3/uL (0.0-0.2); Basophils % 0.6 % (0.0-0.8); Eosinophils # 0.2 10*3/uL (0.0-0.87); Eosinophils % 2.4 % (0.00-10.9); Hematocrit 35.2 VOL% (42.0-52.0); Hemoglobin 11.3 GM/DL (14.0-18.0); Immature Granulocytes % 1.4 %; Immature Granulocytes Absolute 0.13 #; Lymphocytes # 0.9 10*3/uL (1.4-4.0); Mean Corpuscular HGB Conc 32.1 GM/DL (32-36); Mean Corpuscular Volume 97.5 FL (87-102); Mean Platelet Volume 9.1 FL (9.6-12.0); Neutrophils % 77.6 % (38.7-73.9); Platelet Count 133 T/CUMM (130-400); Red Blood Count 3.61 MC/CUMM (3.8-5.5); Red Cell Distribution Width 13.8 % (9.3-17.3); White Blood Count 9.4 T/CUMM (4-12)
[2018-10-18] MEDS ORDERED: FUROSEMIDE 40 MG/4 ML VIAL IV ONE (06:00)
[2018-10-18 06:11] LABS: Alanine Aminotransferase 65 U/L (16-61); Albumin 3.1 G/DL (3.4-5.0); Alkaline Phosphatase 67 U/L (45-117); Aspartate Amino Transferase 43 U/L (0-37); Bilirubin,Indirect 0.6 MG/DL (0.0-1.0); Blood Urea Nitrogen 24 MG/DL (7-18); Glucose 121 MG/DL (74-106); Total Protein 6.2 G/DL (6.4-8.3)
[2018-10-18] MEDS: POTASSIUM CHLORIDE 20 MEQ TABLET PO PRN (06:50)
[2018-10-18] MEDS ORDERED: DILTIAZEM 50 MG/10 ML VIAL IV ONE (08:01)
[2018-10-18] MEDS: LEVALBUTEROL 1.25 MG/3 ML NEB RESP TX SCH ×5 (08:06→22:35)
[2018-10-18] MEDS ORDERED: dilTIAZem Drip 125 MG/125 ML PREMIX IV SCH (08:30)
[2018-10-18] MEDS: CITALOPRAM 20 MG TABLET PO SCH (08:52)
[2018-10-18] MEDS: APIXABAN 5 MG TABLET PO SCH ×2 (08:52→20:55)
[2018-10-18] MEDS: GABAPENTIN 100 MG CAPSULE PO SCH ×3 (08:52→20:55)
[2018-10-18] MEDS: metFORMIN 850 MG TABLET PO SCH ×2 (08:52→17:20)
[2018-10-18] MEDS: METOPROLOL SUCCINATE XL 25 MG TABLET PO SCH (08:52)
[2018-10-18] MEDS: ROSUVASTATIN 10 MG TABLET PO SCH (08:52)
[2018-10-18] MEDS: MULTIVITAMIN (BEROCCA) TABLET PO SCH (08:52)
[2018-10-18] MEDS: ASPIRIN CHEW 81 MG TABLET PO SCH (08:52)
[2018-10-18] MEDS: PANTOPRAZOLE 40 MG TABLET PO SCH (08:52)
[2018-10-18] MEDS: FERROUS SULFATE 325 MG TABLET PO SCH (08:53)
[2018-10-18] MEDS: DOCUSATE SODIUM 100 MG CAPSULE PO SCH (08:53)
[2018-10-18] MEDS: CHLORHEXIDINE 0.12% ORAL RINSE 60 ML BOTTLE SWISH/SPIT SCH ×2 (08:55→20:54)
[2018-10-18] MEDS ORDERED: NON-FORMULARY MEDICATION (Citalopram Hydrobromide [Celexa] 20 MG) PO SCH (09:00)
[2018-10-18] MEDS ORDERED: ASPIRIN EC 81 MG TABLET PO SCH (09:00)
[2018-10-18] MEDS ORDERED: ALBUTEROL 2.5 MG/3 ML NEB RESP TX SCH (11:00)
[2018-10-18] MEDS ORDERED: AMIODARONE INJ 50 MG in DEXTROSE 5% 100 ML IV ONE (11:55)
[2018-10-18] MEDS: LOPERAMIDE 2 MG CAPSULE PO PRN (12:30)
[2018-10-18] MEDS ORDERED: SODIUM CHLORIDE 0.9% 500 ML IV ONE (12:30)
[2018-10-18] MEDS: AMIODARONE INJ 450 MG in DEXTROSE 5% 241 ML IV SCH (12:45)
[2018-10-18] MEDS: SODIUM CHLORIDE 0.9% 1,000 ML IV SCH (13:00)
[2018-10-18] MEDS: FINASTERIDE 5 MG TABLET PO SCH (20:55)
[2018-10-18] MEDS: DOXAZOSIN 4 MG TABLET PO SCH (20:55)
[2018-10-19] MEDS: SODIUM CHLORIDE 0.9% 1,000 ML IV SCH ×2 (02:14→15:39)
[2018-10-19] MEDS: LEVALBUTEROL 1.25 MG/3 ML NEB RESP TX SCH ×6 (02:31→19:05)
[2018-10-19] MEDS: AMIODARONE INJ 450 MG in DEXTROSE 5% 241 ML IV SCH (03:13)
[2018-10-19 05:03] LABS: Basophils % 0.4 % (0.0-0.8); Eosinophils # 0.2 10*3/uL (0.0-0.87); Eosinophils % 1.5 % (0.00-10.9); Hematocrit 32.9 VOL% (42.0-52.0); Hemoglobin 10.5 GM/DL (14.0-18.0); Immature Granulocytes % 1.1 %; Immature Granulocytes Absolute 0.11 #; Lymphocytes # 0.6 10*3/uL (1.4-4.0); Mean Corpuscular HGB Conc 31.9 GM/DL (32-36); Mean Corpuscular Volume 97.3 FL (87-102); Mean Platelet Volume 9.1 FL (9.6-12.0); Monocytes % 8.9 % (1.7-12.7); Neutrophils % 82.1 % (38.7-73.9); Platelet Count 123 T/CUMM (130-400); Red Blood Count 3.38 MC/CUMM (3.8-5.5); Red Cell Distribution Width 13.5 % (9.3-17.3); White Blood Count 9.7 T/CUMM (4-12)
[2018-10-19 05:52] LABS: Alanine Aminotransferase 58 U/L (16-61); Albumin 3.1 G/DL (3.4-5.0); Alkaline Phosphatase 66 U/L (45-117); Aspartate Amino Transferase 40 U/L (0-37); Bilirubin,Indirect 0.6 MG/DL (0.0-1.0); Blood Urea Nitrogen 23 MG/DL (7-18); Calcium 8.5 MG/DL (8.5-10.1); Glucose 126 MG/DL (74-106); Total Protein 5.9 G/DL (6.4-8.3)
[2018-10-19 06:00] LABS: Troponin I 0.807 NG/ML (0.00-0.045)
[2018-10-19] MEDS: APIXABAN 5 MG TABLET PO SCH ×2 (09:05→22:05)
[2018-10-19] MEDS: metFORMIN 850 MG TABLET PO SCH ×2 (09:05→16:47)
[2018-10-19] MEDS: MULTIVITAMIN (BEROCCA) TABLET PO SCH (09:05)
[2018-10-19] MEDS: ASPIRIN CHEW 81 MG TABLET PO SCH (09:05)
[2018-10-19] MEDS: GABAPENTIN 100 MG CAPSULE PO SCH ×3 (09:06→22:05)
[2018-10-19] MEDS: ROSUVASTATIN 10 MG TABLET PO SCH (09:06)
[2018-10-19] MEDS: DOCUSATE SODIUM 100 MG CAPSULE PO SCH (09:06)
[2018-10-19] MEDS: FERROUS SULFATE 325 MG TABLET PO SCH (09:06)
[2018-10-19] MEDS: CHLORHEXIDINE 0.12% ORAL RINSE 60 ML BOTTLE SWISH/SPIT SCH ×2 (09:07→22:11)
[2018-10-19] MEDS: PANTOPRAZOLE 40 MG TABLET PO SCH (09:09)
[2018-10-19] MEDS: AMIODARONE 200 MG TABLET PO SCH (09:09)
[2018-10-19] MEDS: METOPROLOL SUCCINATE XL 25 MG TABLET PO SCH (09:10)
[2018-10-19] MEDS: FINASTERIDE 5 MG TABLET PO SCH (22:05)
[2018-10-19] MEDS: DOXAZOSIN 4 MG TABLET PO SCH (22:05)
[2018-10-20] MEDS: LEVALBUTEROL 1.25 MG/3 ML NEB RESP TX SCH ×6 (03:10→22:59)
[2018-10-20] MEDS ORDERED: FUROSEMIDE 40 MG/4 ML VIAL IV ONE (08:31)
[2018-10-20] MEDS: SODIUM CHLORIDE 0.9% 1,000 ML IV SCH (08:45)
[2018-10-20] MEDS: CLORAZEPATE 3.75 MG TABLET PO PRN ×2 (08:49→21:58)
[2018-10-20] MEDS: LOPERAMIDE 2 MG CAPSULE PO PRN ×3 (08:49→21:59)
[2018-10-20] MEDS: FERROUS SULFATE 325 MG TABLET PO SCH (08:49)
[2018-10-20] MEDS: METOPROLOL SUCCINATE XL 50 MG TABLET PO SCH (08:49)
[2018-10-20] MEDS: GABAPENTIN 100 MG CAPSULE PO SCH ×3 (08:49→20:57)
[2018-10-20] MEDS: ROSUVASTATIN 10 MG TABLET PO SCH (08:49)
[2018-10-20] MEDS: ASPIRIN CHEW 81 MG TABLET PO SCH (08:50)
[2018-10-20] MEDS: APIXABAN 5 MG TABLET PO SCH ×2 (08:50→20:57)
[2018-10-20] MEDS: POTASSIUM CHLORIDE 20 MEQ TABLET PO PRN ×2 (08:50→10:42)
[2018-10-20] MEDS: DOCUSATE SODIUM 100 MG CAPSULE PO SCH (08:51)
[2018-10-20] MEDS: CHLORHEXIDINE 0.12% ORAL RINSE 60 ML BOTTLE SWISH/SPIT SCH ×2 (08:51→20:57)
[2018-10-20] MEDS: PANTOPRAZOLE 40 MG TABLET PO SCH (08:56)
[2018-10-20] MEDS: AMIODARONE 200 MG TABLET PO SCH (08:56)
[2018-10-20] MEDS: MULTIVITAMIN (BEROCCA) TABLET PO SCH (08:56)
[2018-10-20] MEDS: metFORMIN 850 MG TABLET PO SCH ×2 (08:56→16:32)
[2018-10-20] MEDS ORDERED: ZINC OXIDE PASTE 113 GM TUBE TOP PRN (11:42)
[2018-10-20] MEDS ORDERED: methylPREDNISolone SOD SUC 125 MG/2 ML VIAL IV ONE (11:49)
[2018-10-20] MEDS: FINASTERIDE 5 MG TABLET PO SCH (20:56)
[2018-10-20] MEDS: DOXAZOSIN 4 MG TABLET PO SCH (20:57)
[2018-10-20] MEDS: ZALEPLON 5 MG CAPSULE PO PRN (21:58)
[2018-10-21] MEDS: LEVALBUTEROL 1.25 MG/3 ML NEB RESP TX SCH ×6 (02:40→23:06)
[2018-10-21 04:44] LABS: Basophils % 0.1 % (0.0-0.8); Hematocrit 30.8 VOL% (42.0-52.0); Immature Granulocytes % 0.6 %; Immature Granulocytes Absolute 0.06 #; Lymphocytes # 0.4 10*3/uL (1.4-4.0); Lymphocytes % 4.5 % (21.2-54.2); Mean Corpuscular HGB Conc 32.5 GM/DL (32-36); Mean Corpuscular Volume 96.9 FL (87-102); Mean Platelet Volume 10.3 FL (9.6-12.0); Monocytes % 4.7 % (1.7-12.7); Neutrophils % 90.1 % (38.7-73.9); Platelet Count 122 T/CUMM (130-400); Red Blood Count 3.18 MC/CUMM (3.8-5.5); Red Cell Distribution Width 13.6 % (9.3-17.3); White Blood Count 9.5 T/CUMM (4-12)
[2018-10-21 04:46] LABS: Alanine Aminotransferase 45 U/L (16-61); Alkaline Phosphatase 65 U/L (45-117); Aspartate Amino Transferase 31 U/L (0-37); Bilirubin,Indirect 0.3 MG/DL (0.0-1.0); Blood Urea Nitrogen 16 MG/DL (7-18); Glucose 132 MG/DL (74-106); Osmolality,Calculated 272.1 MOS/KG (273-304); Total Protein 5.8 G/DL (6.4-8.3)
[2018-10-21 04:48] LABS: Troponin I 0.327 NG/ML (0.00-0.045)
[2018-10-21 05:19] LABS: Anisocytosis 1+; Band Neutrophils 3 % (0-10); Lymphocytes 5 % (20-55); Macrocytosis 1+; Ovalocytes Few; Platelet Estimate Decreased; Polychromasia 1+; Segmented Neutrophils 89 % (50-85); Total Cells Counted 100
[2018-10-21] MEDS: metFORMIN 850 MG TABLET PO SCH ×2 (07:15→16:48)
[2018-10-21] MEDS: POTASSIUM CHLORIDE 20 MEQ TABLET PO PRN ×3 (07:15→14:57)
[2018-10-21] MEDS: ASPIRIN CHEW 81 MG TABLET PO SCH (09:25)
[2018-10-21] MEDS: MULTIVITAMIN (BEROCCA) TABLET PO SCH (09:25)
[2018-10-21] MEDS: ROSUVASTATIN 10 MG TABLET PO SCH (09:25)
[2018-10-21] MEDS: APIXABAN 5 MG TABLET PO SCH ×2 (09:26→21:15)
[2018-10-21] MEDS: GABAPENTIN 100 MG CAPSULE PO SCH ×3 (09:26→21:14)
[2018-10-21] MEDS: METOPROLOL SUCCINATE XL 50 MG TABLET PO SCH (09:27)
[2018-10-21] MEDS: PANTOPRAZOLE 40 MG TABLET PO SCH (09:27)
[2018-10-21] MEDS: FERROUS SULFATE 325 MG TABLET PO SCH (09:27)
[2018-10-21] MEDS: DOCUSATE SODIUM 100 MG CAPSULE PO SCH (09:28)
[2018-10-21] MEDS: CHLORHEXIDINE 0.12% ORAL RINSE 60 ML BOTTLE SWISH/SPIT SCH ×2 (09:28→21:20)
[2018-10-21] MEDS: POLYVINYL ALCOHOL 1.4% OPH SOLN 15 ML BOTTLE BOTH EYES PRN (09:30)
[2018-10-21] MEDS: FINASTERIDE 5 MG TABLET PO SCH (21:15)
[2018-10-21] MEDS: DOXAZOSIN 4 MG TABLET PO SCH (21:17)
[2018-10-21] MEDS: CLORAZEPATE 3.75 MG TABLET PO PRN (21:17)
[2018-10-21] MEDS: ZALEPLON 5 MG CAPSULE PO PRN (21:17)
[2018-10-22] MEDS: LEVALBUTEROL 1.25 MG/3 ML NEB RESP TX SCH ×6 (02:52→23:30)
[2018-10-22 06:20] LABS: Basophils % 0.5 % (0.0-0.8); Eosinophils # 0.2 10*3/uL (0.0-0.87); Eosinophils % 2.8 % (0.00-10.9); Immature Granulocytes % 0.7 %; Immature Granulocytes Absolute 0.06 #; Lymphocytes # 0.9 10*3/uL (1.4-4.0); Lymphocytes % 10.3 % (21.2-54.2); Mean Corpuscular HGB Conc 32.3 GM/DL (32-36); Mean Corpuscular Volume 96.6 FL (87-102); Mean Platelet Volume 9.5 FL (9.6-12.0); Monocytes % 9.5 % (1.7-12.7); Neutrophils % 76.2 % (38.7-73.9); Platelet Count 133 T/CUMM (130-400); Red Blood Count 3.21 MC/CUMM (3.8-5.5); Red Cell Distribution Width 13.9 % (9.3-17.3); White Blood Count 8.2 T/CUMM (4-12)
[2018-10-22 06:45] LABS: Alanine Aminotransferase 40 U/L (16-61); Alkaline Phosphatase 60 U/L (45-117); Aspartate Amino Transferase 27 U/L (0-37); Bilirubin,Indirect 0.4 MG/DL (0.0-1.0); Blood Urea Nitrogen 15 MG/DL (7-18); Calcium 8.5 MG/DL (8.5-10.1); Glucose 103 MG/DL (74-106); Osmolality,Calculated 275.7 MOS/KG (273-304); Total Protein 5.3 G/DL (6.4-8.3)
[2018-10-22 06:48] LABS: Troponin I 0.295 NG/ML (0.00-0.045)
[2018-10-22] MEDS: ROSUVASTATIN 10 MG TABLET PO SCH (08:00)
[2018-10-22] MEDS: METOPROLOL SUCCINATE XL 50 MG TABLET PO SCH (08:00)
[2018-10-22] MEDS: MULTIVITAMIN (BEROCCA) TABLET PO SCH (08:00)
[2018-10-22] MEDS: metFORMIN 850 MG TABLET PO SCH ×2 (08:00→16:17)
[2018-10-22] MEDS: APIXABAN 5 MG TABLET PO SCH ×2 (08:00→22:17)
[2018-10-22] MEDS: FERROUS SULFATE 325 MG TABLET PO SCH (08:00)
[2018-10-22] MEDS: GABAPENTIN 100 MG CAPSULE PO SCH ×3 (08:00→22:17)
[2018-10-22] MEDS: PANTOPRAZOLE 40 MG TABLET PO SCH (08:00)
[2018-10-22] MEDS: ASPIRIN CHEW 81 MG TABLET PO SCH (08:01)
[2018-10-22] MEDS: POTASSIUM CHLORIDE 20 MEQ TABLET PO PRN ×3 (08:01→13:25)
[2018-10-22] MEDS: CHLORHEXIDINE 0.12% ORAL RINSE 60 ML BOTTLE SWISH/SPIT SCH ×2 (08:01→22:18)
[2018-10-22] MEDS: DOCUSATE SODIUM 100 MG CAPSULE PO SCH (08:07)
[2018-10-22] MEDS: DOXAZOSIN 4 MG TABLET PO SCH (22:17)
[2018-10-22] MEDS: ZALEPLON 5 MG CAPSULE PO PRN (22:18)
[2018-10-22] MEDS: CLORAZEPATE 3.75 MG TABLET PO PRN (22:18)
[2018-10-22] MEDS: LOPERAMIDE 2 MG CAPSULE PO PRN (22:18)
[2018-10-22] MEDS: FINASTERIDE 5 MG TABLET PO SCH (22:18)
[2018-10-23] MEDS: LEVALBUTEROL 1.25 MG/3 ML NEB RESP TX SCH ×6 (03:19→23:22)
[2018-10-23] MEDS: METOPROLOL SUCCINATE XL 50 MG TABLET PO SCH ×2 (08:52→21:02)
[2018-10-23] MEDS: ROSUVASTATIN 10 MG TABLET PO SCH (08:52)
[2018-10-23] MEDS: APIXABAN 5 MG TABLET PO SCH ×2 (08:52→21:01)
[2018-10-23] MEDS: PANTOPRAZOLE 40 MG TABLET PO SCH (08:52)
[2018-10-23] MEDS: MULTIVITAMIN (BEROCCA) TABLET PO SCH (08:52)
[2018-10-23] MEDS: metFORMIN 850 MG TABLET PO SCH ×2 (08:52→17:30)
[2018-10-23] MEDS: DOCUSATE SODIUM 100 MG CAPSULE PO SCH (08:53)
[2018-10-23] MEDS: ASPIRIN CHEW 81 MG TABLET PO SCH (08:53)
[2018-10-23] MEDS: FERROUS SULFATE 325 MG TABLET PO SCH (08:53)
[2018-10-23] MEDS: GABAPENTIN 100 MG CAPSULE PO SCH ×3 (08:53→21:02)
[2018-10-23] MEDS: CHLORHEXIDINE 0.12% ORAL RINSE 60 ML BOTTLE SWISH/SPIT SCH ×2 (08:55→21:03)
[2018-10-23] MEDS: FINASTERIDE 5 MG TABLET PO SCH (21:02)
[2018-10-23] MEDS: DOXAZOSIN 4 MG TABLET PO SCH (21:02)
[2018-10-23] MEDS: CLORAZEPATE 3.75 MG TABLET PO PRN (21:39)
[2018-10-23] MEDS: ZALEPLON 5 MG CAPSULE PO PRN (21:39)
[2018-10-24] MEDS: LEVALBUTEROL 1.25 MG/3 ML NEB RESP TX SCH ×2 (03:15→07:38)
[2018-10-24 08:07] VITALS: BP 114/57
[2018-10-24] MEDS: metFORMIN 850 MG TABLET PO SCH (08:25)
[2018-10-24] MEDS: ROSUVASTATIN 10 MG TABLET PO SCH (08:25)
[2018-10-24] MEDS: GABAPENTIN 100 MG CAPSULE PO SCH (08:25)
[2018-10-24] MEDS: METOPROLOL SUCCINATE XL 50 MG TABLET PO SCH (08:26)
[2018-10-24] MEDS: APIXABAN 5 MG TABLET PO SCH (08:26)
[2018-10-24] MEDS: PANTOPRAZOLE 40 MG TABLET PO SCH (08:26)
[2018-10-24] MEDS: FERROUS SULFATE 325 MG TABLET PO SCH (08:26)
[2018-10-24] MEDS: CHLORHEXIDINE 0.12% ORAL RINSE 60 ML BOTTLE SWISH/SPIT SCH (08:26)
[2018-10-24] MEDS: ASPIRIN CHEW 81 MG TABLET PO SCH (08:26)
[2018-10-24] MEDS: DOCUSATE SODIUM 100 MG CAPSULE PO SCH (08:26)
[2018-10-24] MEDS: MULTIVITAMIN (BEROCCA) TABLET PO SCH (08:26)
== END 2018-10-24 11:23 | disposition swing bed (61) | DRG 235 ==
LOC: N.CVR 12:41 → N.ICU 10-10 17:46 → N.TELES 10-17 14:43